=== PATIENT | female | born 1980 | race Caucasian/White ===

== ENCOUNTER 2021-09-21 10:32 | Emergency (ER) | payer MEDICAID ==
[~2021-09-21] VITALS: Ht 180.3 cm; Wt 85.0 kg
[2021-09-21 11:04] VITALS: BP 129/71
--- NOTE | 2021-09-21 11:11 | NUR ---
PT TO WAIT IN LOBBY
[2021-09-21] MEDS ORDERED: FLUORESCEIN OPTH STRIP 1 MG OP ONE (12:10)
[2021-09-21] MEDS ORDERED: TETRACAINE HCL/PF 0.5% OPTH 4 ML BTL OP ONE (12:10)
--- NOTE | 2021-09-21 12:16 | NUR ---
PT AMBULATED TO BED 11
--- NOTE | 2021-09-21 12:25 | NUR ---
DR. POLO BEDSIDE EVALUATING PT
--- NOTE | 2021-09-21 12:32 | NUR ---
40/F BIB SELF. A&OX4, AMBULATORY W/ STEADY GAIT, C/O R EYE PAIN. PATIENT STATES TO HAVE MOVED [place] ON MONDAY AND GOT DUST IN HER EYE W/ WORSENING PAIN TODAY. PAIN IS 8/10, CONSTANT THROBBING, & ITCHING, CLOUDY WHITE PATCH OVER R EYE. PATIENT STATES TO BE ABLE TO SEE COLORS, SHAPES, BUT IS UNABLE TO HAVE CLEAR VISION, REPORTS TAKING IBUPROFEN TODAY W/ NO RELIEF. PMH: DENIES NKA MEDS: DENIES
--- NOTE | 2021-09-21 12:41 | NUR ---
R. EYE CULTURE TAKEN TO LAB
[2021-09-21] MEDS ORDERED: GENTAMICIN OP 0.3% 15 MG/5 ML BTL OP ONE (12:45)
[2021-09-21] MEDS ORDERED: KETOROLAC 30 MG/ML VIAL IM ONE (12:45)
--- NOTE | 2021-09-21 13:40 | NUR ---
Patient appears to be resting comfortably in bed. Vital Signs within normal limits. Respirations even and unlabored. PT PROVIDED WITH WARM BLANKET WELL
[2021-09-21] MEDS ORDERED: TOBR5SOL17 RIGHT EYE (14:50)
[2021-09-21 14:53] VITALS: BP 128/85
--- NOTE | 2021-09-21 14:53 | NUR ---
Patient discharged with v/s stable. Written and verbal after care instructions ABOUT CORNEAL ULCER AND CORNEAL ABRASION given and explained. Patient alert, oriented and verbalized understanding of instructions. Ambulatory with steady gait. All questions addressed prior to discharge. ID band removed. Patient advised to follow up with PMD. Rx of TOBRAMYCIN given.
--- NOTE | 2021-09-21 14:57 | NUR ---
Chart checked and completed. The patient's care was reviewed and supervised by Belkis Olivas, RN, RN.
--- NOTE | 2021-09-21 14:57 | NUR ---
The patient's care was reviewed and supervised by Belkis Olivas RN, RN.
== END 2021-09-21 14:53 | disposition home or self-care (01) ==
LOC: MED 10:32
DX: H16.031 Corneal ulcer with hypopyon, right eye (principal)
CPT/HCPCS: 87070; 90471; 90715; 96372; 99284; J1885; 99285